=== PATIENT | female | born 1990 | race Caucasian/White ===

== ENCOUNTER 2023-04-02 03:00 | Emergency (ER) | payer BC ==
[~2023-04-02] VITALS: Ht 162.6 cm; Wt 68.0 kg
[2023-04-02 03:20] VITALS: BP 110/77; PULSE 103; RESP 16; TEMP 98.3; O2SAT 100
[2023-04-02 05:32] LABS: AMPHETAMINE, URINE POSITIVE ng/ml (NEG <=1000); BARBITURATE, URINE NEGATIVE ng/ml (NEG <=200); BENZODIAZEPINE, URINE NEGATIVE ng/mL (NEG <=200); CANNABINOID, URINE NEGATIVE ng/mL (NEG <=50); COCAINE, URINE NEGATIVE ng/mL (NEG <=300); OPIATE, URINE NEGATIVE ng/mL (NEG <=2000); PHENCYCLIDINE SCREEN,URINE NEGATIVE ng/mL (NEG <=25)
== END 2023-04-02 03:29 | disposition left against medical advice (07) ==
LOC: EDBD 03:00 → MED 03:00
DX: S00.12XA Contusion of left eyelid and periocular area, initial encounter (principal); F15.10 Other stimulant abuse, uncomplicated; R51.9 Headache, unspecified; R07.81 Pleurodynia; Z88.0 Allergy status to penicillin; Z88.8 Allergy status to other drugs, medicaments and biological substances; Z91.040 Latex allergy status; Z91.02 Food additives allergy status; Y08.89XA Assault by other specified means, initial encounter; Y93.89 Activity, other specified; Y92.89 Other specified places as the place of occurrence of the external cause; Y99.8 Other external cause status
CPT/HCPCS: 80305; 81025; 99283